=== PATIENT | male | born 1955 | race Caucasian/White ===

== ENCOUNTER → 2021-01-28 | Outpatient (CLI) | payer OTHER ==
[~2021-01-28] MED LIST: ASPIRIN EC81 M1; ASPIRIN PO; EFFIENT10 MG PO; LIPITOR40 MG; NITROGLYCERIN0.4 MG SL; NOHOMEMEDICATIONS; PLAVIX 75 MG TA75 MG PO; TOPROL XL25 MG PO; ZOCOR80 MG PO
== END ==
LOC: NUC 10:24
PROVIDERS: ATTEND Nurse Practitioner
DX: M81.0 Age-related osteoporosis without current pathological fracture (principal); M85.88 Other specified disorders of bone density and structure, other site